=== PATIENT | female | born 1960 | race Caucasian/White ===

== ENCOUNTER 2017-09-25 07:36 | Day surgery (SDC) | payer MEDICARE ==
[2017-09-25] MEDS ORDERED: FENTANYL PF 100MCG/2ML VIAL IV ONE (07:37)
[2017-09-25] MEDS ORDERED: MIDAZOLAM HCL 2MG/2ML VIAL IV ONE (07:37)
[2017-09-25] MEDS ORDERED: PROPOFOL 10 MG/ML VIAL IV ONE (07:37)
[2017-09-25] MEDS ORDERED: BUPIVACAINE 0.5% W/EPI MPF 30 ML VIAL IVP ONE (07:37)
[2017-09-25] MEDS ORDERED: LIDOCAINE 2% MDV (20MG/ML) 20ML VIAL IV ONE (07:37)
[2017-09-25] MEDS ORDERED: DEXAMETHASONE PRESERVATIVE FREE 10MG/ML VIAL IV ONE (07:37)
--- NOTE | 2017-09-25 15:10 | Operative Note - Ferro ---
DATE OF SURGERY: 09/25/17 PREOPERATIVE DIAGNOSIS: CERVICAL SPONDYLOSIS WITHOUT MYELOPATHY, ICD-10 CODE = M47.812. OPERATION: FLUOROSCOPICALLY-GUIDED INFILTRATIONAL BLOCK LEFT CERVICAL FACET, 3-4, 4-5, 5-6, 6-7. SURGEON: RAINA BUITRAGO D.O. ANESTHESIA: LOCAL SEDATION. ANESTHESIA PROVIDER: BAO PARKER CRNA. INDICATION: This patient presents with pain, which is left-sided neck, shoulder , and arm. Diagnostics do show multiple levels of spondylosis with disc abnormalities. PROCEDURE: Intravenous line, vital sign monitoring, IV sedation, prepped, draped, sterile technique. Under imaging, facet levels cervical spine on the left 3-4, 4-5, 5-6, and 6-7 marked and infiltrated. A #25-gauge, 3.5-inch needle into the facet. 1 mL of 0.5% Marcaine and Dexamethasone injected. Each area cleaned. Topical antibiotics. Sterile dressing applied. We will monitor and evaluate. cc: Dr. Perry JOB NUMBER: [id number] MTDD
== END 2017-09-25 09:30 | disposition home or self-care (01) ==
LOC: SUR 07:36
PROVIDERS: ATTEND Pain Medicine Interventional Pain Medicine
DX: M47.812 Spondylosis without myelopathy or radiculopathy, cervical region (principal); E03.9 Hypothyroidism, unspecified; E78.00 Pure hypercholesterolemia, unspecified
CPT/HCPCS: 64490; 64491; 64492; 01936; J1100; J3010

== ENCOUNTER 2017-11-06 06:56 | Day surgery (SDC) | payer MEDICARE ==
[2017-11-06] MEDS ORDERED: BUPIVACAINE 0.25% MPF 30ML VIAL IVP ONE (06:57)
[2017-11-06] MEDS ORDERED: BUPIVACAINE 0.5% W/EPI MPF 30 ML VIAL IVP ONE (06:57)
[2017-11-06] MEDS ORDERED: PROPOFOL 10 MG/ML VIAL IV ONE (06:57)
[2017-11-06] MEDS ORDERED: LIDOCAINE 1% W/EPI 1:200,000 MPF 30ML SQ ONE (06:57)
[2017-11-06] MEDS ORDERED: *PACU ONLY* KETAMINE HCL 10 MG/ML (20ML) VIAL IV ONE (06:57)
[2017-11-06] MEDS ORDERED: MIDAZOLAM HCL 2MG/2ML VIAL IV ONE (06:57)
[2017-11-06] MEDS ORDERED: FENTANYL PF 100MCG/2ML VIAL IV ONE (06:57)
--- NOTE | 2017-11-06 19:18 | Operative Note - Ferro ---
DATE OF SURGERY: 11/06/17 PREOPERATIVE DIAGNOSIS: CERVICAL RADICULOPATHY, ICD-10 CODE = M54.13. SURGERY: FLUOROSCOPIC-GUIDED LEFT QUADRANT CERVICAL EPIDURAL INJECTION C6-7. SURGEON: RAINA BUITRAGO D.O. ANESTHESIA: LOCAL SEDATION. ANESTHESIA PROVIDER: CHENTE MCADAMS CRNA INDICATIONS: This patient presents with pain, which is left-sided neck, shoulder, and arm. Her diagnostic studies show a 5-6 and 6-7 disc space abnormality. SURGERY: Intravenous line, vital sign monitoring, IV sedation, prepped and draped, sterile technique. Under imaging, the area of pain to the left was imaged. The cervical epidural interspace at C6-7 was marked and infiltrated and then a #18 gauge, 3.5 inch Tuohy needle with [id number]. Contrast epidurogram showing extensive left quadrant flow characteristics. 5 mL of 0.125 % Marcaine with Dexamethasone injected. Needle removed. Neck cleaned. Topical antibiotic. Sterile dressing applied. We will monitor and evaluate. cc: Dr. James Perry JOB NUMBER: [id number] MTDD
== END 2017-11-06 08:37 | disposition home or self-care (01) ==
LOC: SUR 06:56
PROVIDERS: ATTEND Pain Medicine Interventional Pain Medicine
DX: M54.13 Radiculopathy, cervicothoracic region (principal); E78.00 Pure hypercholesterolemia, unspecified; F41.9 Anxiety disorder, unspecified; E03.9 Hypothyroidism, unspecified; F17.210 Nicotine dependence, cigarettes, uncomplicated
CPT/HCPCS: 62321; 01936; Q9967; J3010

== ENCOUNTER 2018-02-12 09:40 | Day surgery (SDC) | payer MEDICARE ==
--- NOTE | 2018-02-12 05:00 | History and Physical Report ---
DATE: 02/11/2018. CHIEF COMPLAINT AND HISTORY OF CHIEF COMPLAINT: This patient presents with a history of an intractable left cervical radiculopathy. There has been no injury or trauma. Diagnostic studies show multilevel spondylosis with disc abnormalities. No surgical options exist. A spinal cord stimulator trial was conducted with greater than 75 percent pain control. Due to the failure of therapy and the success of the trial, she presents today for implantation of a permanent system. PAST MEDICAL HISTORY: Noncontributory. PAST SURGICAL HISTORY: Tubal ligation, thoracic surgery. MEDICATIONS ON ADMISSION: To be provided. ALLERGIES: Tramadol. SOCIAL HISTORY: Caffeine and cigarette smoking. FAMILY HISTORY: Thyroid disease, diabetes, coronary artery disease, hypertension, and cancer. REVIEW OF SYSTEMS: The patient is appropriate and in no acute distress. The remainder of the systems review shows glasses, depression with anxiety disorder , and difficulty sleeping. PHYSICAL EXAMINATION: General: Height and weight unavailable. Vital Signs: Not available. HEENT: Within normal limits. Lungs: Clear. Heart: Regular rate and rhythm. Abdomen: Nontender. Musculoskeletal: Examination of the musculoskeletal system shows diffuse tenderness throughout the cervical spine, neck, shoulder, and arm to the left. There is a facial and temporal component consistent with a trigeminal element. Sensory hagan are intact, although there are some hyperpathic responses. Motor and sensory field function are intact. Neurologic: Cranial nerves are intact. IMPRESSION: CERVICAL RADICULOPATHY, ICD-10 CODE M54.12 PLAN: Due to the failure of all other therapies and the success of the spinal cord stimulator trial, the patient presents today for implantation of a permanent system. She has not only neck, shoulder, and arm pain but also facial and head components. According to the patient these were all helped through the trial. The potential risks, side effects, and complications have all been carefully reviewed and discussed. These include nerve root injury, spinal cord injury, spinal headache, and failure of the therapy. We will consider the procedure outpatient, although an overnight stay will be evaluated. She has read all of the literature from the motor and generator assembler and has had the opportunity to interact with the [employer] technical specialists. All questions have been answered. JOB NUMBER: [id number] cc: Kasie Carney
[~2018-02-12 09:40] MED LIST: ACETAMINOPHEN 1,000 MG/100 ML BTL IV ONE; FAMOTIDINE 20MG TABLET PO ONE; MECLIZINE 25 MG TABLET PO ONE; METOCLOPRAMIDE 10 MG TABLET PO ONE; VANCOMYCIN HCL 1,000 MG in DEXTROSE 5 % IN WATER 250 ML IVPB ONE
[2018-02-12] MEDS ORDERED: FLUMAZENIL 1MG/10ML VIAL IV ONE (09:41)
[2018-02-12] MEDS ORDERED: CEFAZOLIN 1G VIAL IM ONE (09:41)
[2018-02-12] MEDS ORDERED: LIDOCAINE 1% MDV (10MG/ML) 20ML VIAL SQ ONE (09:41)
[2018-02-12] MEDS ORDERED: LIDOCAINE 1% W/EPI 1:200,000 MPF 30ML SQ ONE (09:41)
[2018-02-12] MEDS ORDERED: FENTANYL PF 100MCG/2ML VIAL IV ONE ×2 (09:41)
[2018-02-12] MEDS ORDERED: PROPOFOL 10 MG/ML VIAL IV ONE (09:41)
[2018-02-12] MEDS ORDERED: *PACU ONLY* KETAMINE HCL 10 MG/ML (20ML) VIAL IV ONE (09:41)
[2018-02-12] MEDS ORDERED: BUPIVACAINE 0.5% W/EPI MPF 30 ML VIAL IVP ONE (09:41)
[2018-02-12] MEDS ORDERED: MIDAZOLAM HCL 2MG/2ML VIAL IV ONE (09:41)
--- NOTE | 2018-02-12 12:44 | Operative Note - Ferro ---
DATE OF SURGERY: 02/12/18 PRIMARY CARE PHYSICIAN: DR. JAMES TSAI PREOPERATIVE DIAGNOSIS: CERVICAL RADICULOPATHY, ICD-10 CODE = M54.12. SURGERY: 1. FLUOROSCOPIC-GUIDED EPIDURAL ACCESS LEFT T1-2. PLACEMENT OF SPINAL CORD STIMULATOR LEAD 1, A [employer] INFINION 16 WITH 6 ELECTRODES POSITIONED LEFT C2. 2. FLUOROSCOPIC-GUIDED EPIDURAL ACCESS LEFT T2-3. PLACEMENT OF SPINAL CORD STIMULATOR LEAD 2, A [employer] INFINION 16 WITH 6 ELECTRODES POSITIONED RIGHT C2. 3. COMPLEX PROGRAMMING OF LEAD 1 OVER 20 MINUTES FOLLOWED BY COMPLEX PROGRAMMING OF LEAD 2 OVER 20 MINUTES. 4. INCISION, SUBCUTANEOUS DISSECTION, AND ANCHORING OF LEAD 1 AND LEAD 2 TO SUPRASPINOUS FASCIA USING A [employer] LOCKING ANCHOR. 5. INCISION, SUBCUTANEOUS DISSECTION, AND CREATION OF A SUBCUTANEOUS POUCH AT LEFT FLANK FOR PLACEMENT OF GENERATOR IDENTIFIED [employer] PROGRAMMABLE, RECHARGEABLE WAVEWRITER. 6. TUNNELING BETWEEN POUCHES, PLACEMENT OF EXTERNAL PORTION OF LEAD 1 AND LEAD 2 INTO GENERATOR POUCH, EACH LEAD INTERFACED TO GENERATOR. 7. CLOSURE OF INCISIONS WITH VICRYL FOR FASCIA AND A RUNNING SUBCUTICULAR VICRYL FOR SKIN. GENERATOR ANCHORED TO POSTERIOR FASCIA WITH NONABSORBABLE SUTURE. DERMABOND CLOSURE. 8. COMPLEX RECOVERY ROOM PROGRAMMING INTERNAL GENERATOR HOME USE 2 STIMULATORS RECOVERY ROOM 20 MINUTES. SURGEON: RAINA BUITRAGO D.O. ANESTHESIA: LOCAL SEDATION. ANESTHESIA PROVIDER: ANTOINETTE OSHEA CRNA. INDICATION: This patient presents with a history of an intractable cervical radiculopathy left. There is a trigeminal component. During the trial, after the failure of other conservative therapies, we were able to stimulate the complete neck, shoulder, and arm as well as get some posterior occipital, parietal, and temporal stimulation, which helped with the trigeminal pain. After the failure of everything else, she is here for implantation of a permanent system. SURGERY: Intravenous line, vital sign monitoring, IV sedation, prepped and draped in sterile technique. On the left, the epidural interspace at T1-2 and 2- 3 infiltrated, using standard epidural needles with [id number]. At 1-2, spinal cord stimulator lead 1, a [employer] Infinion 16 with 6 electrodes positioned left of the midline somewhat lateral at C2. With the epidural access at 2-3, same technique spinal cord stimulator lead 2, a [employer] Infinion 16 with 6 electrodes positioned at the midline slightly left and medial to lead 1. Complex programming of lead 1 over 20 minutes followed by complex programming of lead 2 over 20 minutes resulting in complete patterns of stimulation across the neck, shoulder, and arm and extending into the back side of the head. The patient indicating we had all the areas. She was given the option to implant, continue to program or remove. She opted to implant. The skin above and below the needles infiltrated, an incision made and subcutaneous dissection was conducted to the supraspinous fascia. The needles were removed and then each lead anchored to the supraspinous fascia with a Hytle locking anchor and nonabsorbable suture. At the left flank, a site picked by the patient for the generator, skin infiltrated, incision made and subcutaneous dissection was conducted to form a pouch of suitable size and depth for the generator, a Hytle programmable, rechargeable WaveWriter. A tunneling tool was then used to carry the leads into the generator pouch and then each lead was interfaced with the generator. Antibiotic irrigation and Bovie hemostasis. The generator was placed into the pouch and secured to the fascia with nonabsorbable suture. Both incisions were closed with Vicryl for fascia and a running subcuticular Vicryl for skin. A Dermabond closure was then used to approximate the edges of both wounds. She was transported to the Recovery Room stable. No side-effects from the procedure or the sedation. When fully awake and alert, complex programming of the two leads over 20 minutes reestablishing stimulation and pain control to all of the appropriate areas. She was instructed on the use of the system and provided information on error messaging and then prepared for discharge. DISCHARGE INSTRUCTIONS: 1. The sites are to remain clean and dry. No showering or bathing in any way that will disrupt dressings. Although the Dermabond will allowing showering, she cannot sit in water. 2. Standard medications will be resumed including the antibiotic, Levaquin, 500 mg once a day for 14 days. 3. The office will contact the patient in the next 24 to 48 hours to set up an appointment in 7 to 10 days to evaluate the sites. Until that time, she is to keep her activities low, use the antibiotic, and take medications appropriately. All other instructions provided, numbers to contact if problems given. She will be seen in 7 to 10 days. cc: Dr. James Tsai JOB NUMBER: [id number] [facility]
[2018-02-12] MEDS ORDERED: DIAZEPAM 5 MG TABLET PO PRN (13:31)
[2018-02-12] MEDS ORDERED: TEMAZEPAM 15 MG CAPSULE PO PRN ×2 (13:35)
[2018-02-12] MEDS ORDERED: ACETAMINOPHEN 325 MG TAB PO PRN ×2 (13:35)
[2018-02-12] MEDS ORDERED: HYDROCODONE/APAP 7.5/325MG TABLET PO PRN ×2 (13:35)
[2018-02-12] MEDS ORDERED: DIPHENHYDRAMINE HCL 25 MG CAPSULE PO PRN ×2 (13:35)
[2018-02-12] MEDS ORDERED: METOCLOPRAMIDE HCL 10 MG/2 ML VIAL IVP PRN (13:35)
[2018-02-12] MEDS ORDERED: SENNOSIDES/DOCUSATE SODIUM UD CAPSULE PO PRN ×2 (13:35)
[2018-02-12] MEDS ORDERED: METOCLOPRAMIDE 10 MG TABLET PO PRN (13:35)
[2018-02-12] MEDS ORDERED: HYDROMORPHONE HCL 2 MG/ML VIAL IM PRN ×2 (13:35)
[2018-02-12] MEDS ORDERED: AL HYDROX/MAG HYDROX 30ML UD PO PRN (13:35)
[2018-02-12] MEDS ORDERED: DIPHENHYDRAMINE HCL 50 MG/ML VIAL IVP PRN ×2 (13:35)
[2018-02-12] MEDS ORDERED: OXYCODONE/APAP 10MG-325MG TABLET PO PRN (13:35)
[2018-02-12] MEDS: PATIENT OWN MED: GABAPENTIN 400 MG PO SCH ×3 (13:55→21:05)
[2018-02-12] MEDS: PHENYTOIN 100 MG PO SCH ×2 (13:55→21:05)
[2018-02-12] MEDS: MORPHINE SULFATE 15 MG TABLET PO SCH ×2 (13:58→20:43)
[2018-02-12] MEDS: OXYCODONE/APAP 10MG-325MG TABLET PO PRN ×3 (14:40→22:48)
[2018-02-12] MEDS ORDERED: NICOTINE 21 MG/24 HOUR PATCH TD SCH (20:00)
[2018-02-12] MEDS ORDERED: ESTRADIOL 0.5 MG PO SCH (22:00)
[2018-02-12] MEDS ORDERED: LEVOTHYROXINE 112 MCG PO SCH (22:00)
[2018-02-12] MEDS ORDERED: 0.9 % SODIUM CHLORIDE 10ML SYR IVP SCH (22:00)
[2018-02-12] MEDS ORDERED: PATIENT OWN MED: SIMVASTATIN 20 MG PO SCH (22:00)
[2018-02-12] MEDS ORDERED: MEDROXYPROGESTERONE PO SCH (22:00)
[2018-02-12] MEDS ORDERED: VANCOMYCIN HCL 1,000 MG in DEXTROSE 5 % IN WATER 250 ML IVPB ONE ×2 (23:00)
[2018-02-13] MEDS: MORPHINE SULFATE 15 MG TABLET PO SCH ×2 (02:01→07:53)
[2018-02-13] MEDS: OXYCODONE/APAP 10MG-325MG TABLET PO PRN ×2 (03:49→09:27)
[2018-02-13] MEDS: PATIENT OWN MED: GABAPENTIN 400 MG PO SCH (08:00)
[2018-02-13] MEDS: PHENYTOIN 100 MG PO SCH (08:02)
--- NOTE | 2018-02-15 15:04 | RADIOLOGY REPORT ---
DATE: 02/12/2018. EXAM: CERVICAL SPINE. HISTORY: Postoperative. TECHNIQUE: Portable view of the cervical spine. COMPARISON: None. FINDINGS: There are two stimulating wires with the proximal tips projecting over the body of C2. IMPRESSION: POSTSURGICAL CHANGE ABOVE. JOB NUMBER: [id number] MTDD
[2018-02-26] MEDS ORDERED: ACETAMINOPHEN 1,000 MG/100 ML BTL IV ONE (06:00)
[2018-02-26] MEDS ORDERED: VANCOMYCIN HCL 1,000 MG in DEXTROSE 5 % IN WATER 250 ML IVPB ONE ×2 (06:00)
[2018-02-26] MEDS ORDERED: MECLIZINE 25 MG TABLET PO ONE (06:00)
[2018-02-26] MEDS ORDERED: METOCLOPRAMIDE 10 MG TABLET PO ONE (06:00)
[2018-02-26] MEDS ORDERED: FAMOTIDINE 20MG TABLET PO ONE (06:00)
== END 2018-02-13 09:45 | disposition home or self-care (01) ==
LOC: SUR 09:40 → MEDSURG 12:48 → SUR 02-13 09:45
PROVIDERS: ATTEND Pain Medicine Interventional Pain Medicine
DX: M54.12 Radiculopathy, cervical region (principal); F17.210 Nicotine dependence, cigarettes, uncomplicated
CPT/HCPCS: 72020; 95972; C1820; C1883; J0690; J7060